=== PATIENT | male | born 1970 | race Caucasian/White ===

== ENCOUNTER 2023-09-04 21:54 | Emergency (ER) | payer MEDICARE ==
[~2023-09-04] VITALS: Ht 170.2 cm; Wt 79.0 kg
[2023-09-05 00:25] LABS: BASOPHILS % (AUTO) 0.6 % (0-1); EOSINOPHILS % (AUTO) 0.7 % (0-6); HEMATOCRIT 40.2 % (42.0-52.0); HEMOGLOBIN 14.3 g/dl (14.0-17.9); LYMPHOCYTES # (AUTO) 1.7 X10'3 (1.1-4.8); LYMPHOCYTES % (AUTO) 26.9 % (21-51); MEAN CORPUSCULAR HEMOGLOBIN 30.5 PG (27.0-31.0); MEAN CORPUSCULAR HGB CONC 35.6 g/dL (33.0-36.5); MEAN CORPUSCULAR VOLUME 85.6 FL (78-98); MEAN PLATELET VOLUME 7.7 FL (7.4-10.4); MONOCYTES # (AUTO) 0.5 X10'3 (0-0.9); MONOCYTES % (AUTO) 8.5 % (2-12); NEUTROPHILS # (AUTO) 4.1 X10'3 (1.8-7.7); NEUTROPHILS % (AUTO) 63.3 % (42-75); PLATELET COUNT 185 X10'3 (140-440); RED CELL DISTRIBUTION WIDTH 13.4 % (11.5-14.5); WHITE BLOOD COUNT 6.4 X10'3 (4.5-11.0)
[2023-09-05 00:38] LABS: BILIRUBIN,URINE NEGATIVE (Neg); CLARITY,URINE CLEAR (Clear); COLOR,URINE YELLOW (Yellow); GLUCOSE, URINE >=1000 mg/dl (Neg); KETONES,URINE NEGATIVE (Neg); LEUKOCYTE ESTERASE ,URINE NEGATIVE (Neg); NITRITES, URINE NEGATIVE (Neg); OCCULT BLOOD,URINE NEGATIVE (Neg); PH,URINE 5.5 (4.8-8.0); PROTEIN,URINE NEGATIVE (Neg); UROBILINOGEN,URINE 0.2 E.U/dL (0.2-1.0)
[2023-09-05 00:44] LABS: UA COLLECTION TYPE VOIDED
[2023-09-05 00:46] LABS: ANION GAP 7 (8-16); BLOOD UREA NITROGEN 16 MG/DL (7-18); BUN/CREATININE RATIO 16.2 (10.0-20.0); CHLORIDE 100 MMOL/L (99-107); CREATININE 0.99 MG/DL (0.60-1.10); ETHANOL < 10 MG/DL (<10); POTASSIUM 4.4 MMOL/L (3.5-5.1); SODIUM 137 MMOL/L (135-145); THYROID STIMULATING HORMONE 1.61 ulU/ml (0.34-4.50); TOTAL CARBON DIOXIDE 30.4 MMOL/L (24-32); eCRCL 79 ML/MIN; eGFR 78 ML/MIN
[2023-09-05] MEDS ORDERED: metformin PO (00:47)
[2023-09-05 00:48] LABS: BACTERIA,URINE NONE SEEN /HPF (Neg); RBC,URINE 0-2 /HPF (0-2); SQUAMOUS EPITHELIAL CELL,UR NONE SEEN /LPF (FEW); WBC,URINE 0-4 /HPF (0-4)
[2023-09-05] MEDS ORDERED: TRU SQ (00:48)
[2023-09-05] MEDS ORDERED: GLYB5TAB7 PO (00:48)
[2023-09-05 00:49] LABS: AMORPHOUS URATES 1+
[2023-09-05 00:53] LABS: GLUCOSE 412 MG/DL (70-104)
[2023-09-05] MEDS: insulin regular, human 10 units/0.1 ml syringe SQ ONE (01:08)
[2023-09-05 01:11] LABS: URINE AMPHETAMINE SCREEN NEGATIVE (Neg); URINE BARBITUATE SCREEN NEGATIVE (Neg); URINE BENZODIAZEPINES SCREEN NEGATIVE (Neg); URINE CANNABINOID SCREEN NEGATIVE (Neg); URINE COCAINE SCREEN NEGATIVE (Neg); URINE METHADONE SCREEN NEGATIVE (Neg); URINE OPIATE SCREEN NEGATIVE (Neg); URINE PHENCYCLIDINE SCREEN NEGATIVE (Neg)
[2023-09-05 08:18] VITALS: PULSE 86; TEMP 97.6
[2023-09-05 14:26] VITALS: BP 122/78; RESP 16; O2SAT 98
== END 2023-09-05 14:30 | disposition home or self-care (01) ==
LOC: ER 21:56
DX: F43.20 Adjustment disorder, unspecified (principal); Z20.822 Contact with and (suspected) exposure to COVID-19; Z88.4 Allergy status to anesthetic agent; Z79.899 Other long term (current) drug therapy
CPT/HCPCS: 36415; 80048; 80305; 80320; 81001; 82948; 84443; 85025; 87811; 99284; J1815

== ENCOUNTER 2023-09-23 16:16 | Emergency (ER) | payer MEDICARE ==
[~2023-09-23] VITALS: Ht 170.2 cm; Wt 76.8 kg
[~2023-09-23 16:16] MED LIST: GLYB5TAB7 PO; TRU SQ; metformin PO
[2023-09-23 16:22] VITALS: BP 130/92; PULSE 92; RESP 18; TEMP 97.5; O2SAT 100
[2023-09-23] MEDS ORDERED: CEPH500C2 PO (16:42)
[2023-09-23] MEDS ORDERED: CIPR-259 PO (16:42)
[2023-09-23] MEDS: TETanus/Pertussis (Acell)/Diphther VAC/PF (Tdap-Adult) 0.5ml syringe IMVAC ONE (18:16)
[2023-09-23] MEDS: ciprofloxacin 250mg tablet PO ONE (18:38)
[2023-09-23] MEDS: cephalexin 250mg capsule PO ONE (18:39)
== END 2023-09-23 18:44 | disposition home or self-care (01) ==
LOC: ER 16:17
DX: S91.332A Puncture wound without foreign body, left foot, initial encounter (principal); Z88.8 Allergy status to other drugs, medicaments and biological substances; Z79.899 Other long term (current) drug therapy; X58.XXXA Exposure to other specified factors, initial encounter; Y93.89 Activity, other specified; Y92.89 Other specified places as the place of occurrence of the external cause; Y99.8 Other external cause status
CPT/HCPCS: 90471; 90715; 99283